=== PATIENT | male | born 1980 | race African-American/Black ===

== ENCOUNTER 2021-02-16 00:51 | Emergency (ER) | payer BC ==
[~2021-02-16] VITALS: Ht 160 cm; Wt 86.2 kg
[~2021-02-16 00:51] MED LIST: BACTRIM DS TAB1 EACH PO; CIPROFLOXACIN500 M3 PO; DOXYCYCLINE 10100 MG PO; ULTRAM50 MG PO
[2021-02-16 02:20] LABS: WBC 13.1 thou/uL (4.0-11.0)
[2021-02-16 02:21] LABS: HEMATOCRIT 43.8 % (42.0-52.0); HEMOGLOBIN 14.9 gm/dL (14.0-18.0); MCH 29.8 pg (26.0-34.0); MCHC 34.1 g/dL (28.0-37.0); MCV 87.2 fL (80.0-100.0); MPV 8.3 fl. (7.2-11.1); NUCLEATED RBCS 0 /100WBC; PLATELET COUNT* 294 thou/uL (150-400); RBC 5.02 mil/uL (4.50-6.00); RDW-CV 14.3 % (10.5-14.5)
[2021-02-16 02:28] LABS: CALCIUM 9.3 mg/dL (8.5-10.1); CREATININE 0.9 mg/dL (0.6-1.3); POTASSIUM 3.7 mmol/L (3.5-5.1)
[2021-02-16 02:32] LABS: ALBUMIN 4.5 g/dL (3.4-5.0); TOTAL BILIRUBIN 0.5 mg/dL (<0.1-1.0); TOTAL PROTEIN 8.7 g/dL (6.4-8.2)
[2021-02-16 03:34] LABS: ABSOLUTE LYMPHOCYTES 0.8 thou/uL (0.8-5.3); ABSOLUTE MONOCYTES 0.5 thou/uL (0.0-1.2); ABSOLUTE NEUTROPHILS 11.8 thou/uL (1.6-8.1); CLUMPED PLTS OCCASIONAL; PLATELET ESTIMATE ADEQUATE
[2021-02-16] MEDS ORDERED: ZOFRAN ODT4 MG PO (04:36)
[2021-02-16] MEDS ORDERED: COMPAZINE10 M2 PO (04:36)
[2021-02-16 04:42] VITALS: BP 137/81
== END 2021-02-16 04:42 | disposition home or self-care (01) ==
LOC: M.ERS 00:51
PROVIDERS: Emergency Medicine
DX: R10.13 Epigastric pain (principal); R10.11 Right upper quadrant pain; F17.210 Nicotine dependence, cigarettes, uncomplicated